=== PATIENT | female | born 1990 | race Asian ===

== ENCOUNTER 2016-07-12 07:49 | Day surgery (SDC) | payer BC, OTHER ==
[~2016-07-12 07:49] MED LIST: Bupivacaine 0.5%/EPINEPHrine 1:200,000 50 ML MDV ONE
[2016-07-12] MEDS ORDERED: Lactated Ringers 1,000 ML IV SCH (08:00)
[2016-07-12] MEDS ORDERED: fentaNYL 250 MCG/5 ML SDV ONE ×2 (09:25→10:28)
[2016-07-12] MEDS ORDERED: Propofol 200 MG/20 ML SDV ONE (09:26)
[2016-07-12] MEDS ORDERED: Neostigmine Methylsulfate 1 MG/ML 5 ML Syringe ONE (09:26)
[2016-07-12] MEDS ORDERED: Ondansetron 4 MG/2 ML SDV ONE (09:26)
[2016-07-12] MEDS ORDERED: Rocuronium 50 MG/5 ML Vial ONE (09:26)
[2016-07-12] MEDS ORDERED: Dexamethasone 4 MG/ML SDV ONE (09:26)
[2016-07-12] MEDS ORDERED: Fluorescein 5 ML Vial ONE (09:47)
[2016-07-12] MEDS ORDERED: Isosulfan Blue 5 ML SDV ONE (09:47)
[2016-07-12] MEDS ORDERED: Acetaminophen/HYDROcodone 325-5 MG Tab PO PRN (11:49)
[2016-07-12 13:13] VITALS: BP 104/61
== END 2016-07-12 13:00 | disposition home or self-care (01) ==
LOC: JP.SDS 07:49
PROVIDERS: ATTEND Obstetrics & Gynecology
DX: E28.2 Polycystic ovarian syndrome (principal); R10.2 Pelvic and perineal pain; N97.9 Female infertility, unspecified; N73.6 Female pelvic peritoneal adhesions (postinfective); N80.9 Endometriosis, unspecified
CPT/HCPCS: 36415; 49320; 58350; 81025; 86850; 86900; 86901; A9270; J1100; J2405; J2704; J3010; J7120; Q9968

== ENCOUNTER 2017-07-17 11:37 | Inpatient (IN) | payer BC ==
[2017-07-17] MEDS ORDERED: fentaNYL 100 MCG/2 ML SDV IVPUSH PRN (13:22)
[2017-07-17] MEDS ORDERED: Acetaminophen 325 MG Tab PO PRN (13:22)
[2017-07-17] MEDS ORDERED: Sodium Chloride 0.9% 10 ML Syringe FLUSH PRN (13:22)
[2017-07-17] MEDS: Lactated Ringers 1,000 ML IV SCH ×4 (13:45→19:41)
[2017-07-17] MEDS ORDERED: ePHEDrine 50 MG/ML SDV ONE (13:48)
[2017-07-17] MEDS ORDERED: Ropivacaine 100 ML EPIDUR SCH (14:48)
[2017-07-17] MEDS ORDERED: Naloxone 0.4 MG/ML SDV IVPUSH PRN (14:48)
[2017-07-17] MEDS ORDERED: ePHEDrine 50 MG/ML SDV IV PRN (14:48)
--- NOTE | 2017-07-17 15:13 | ANES ---
DATE OF SERVICE: 07/17/2017 LABOR EPIDURAL NOTE INDICATIONS: Lolis is a 27-year-old female patient in with labor pains and is requesting a labor epidural at this time. At the bedside at 1:50 p.m., did a brief history and physical with the patient. The patient stated that she has had a normal , no abnormal bleeding issues. No significant health problems. Platelet count was good, was approximately 250. Risk and benefits were reviewed with the patient and her . The patient understands the risks related to the procedure and still wishes to proceed with the labor epidural today. DESCRIPTION OF PROCEDURE: The patient was then sat at the edge of the bed. Time-out was done, Betadine prep x3 to the lumbar region was done. Sterile drape was placed. 1% lidocaine skin wheal and deep was done. A 17-gauge Touhy needle was inserted at approximately the L4-L5 space. Loss of resistance was achieved at approximately 6 cm. Negative paresthesia, negative heme, and negative CSF were noted. Catheter was easily placed. A 17-gauge Tuohy needle was then withdrawn. Catheter was pulled back to 12 cm. A 3 mL test dose was then done. Catheter was secured at that 12 cm. The patient was laid supine with left uterine displacement. I then proceeded to give 12 mL of 0.2% ropivacaine via the epidural bolus that was given over approximately 10 minutes. After the bolus was done, I then started her on a 0.2% ropivacaine drip at 12 mL an hour. The patient was already feeling some numbness and tingling mostly down the right side, but a little on the left. We will continue to monitor the patient closely. Vital signs were stable throughout and post ropivacaine bolus. The patient appeared comfortable upon leaving. Faustino Pratt CRNA /[id number]
[2017-07-17] MEDS ORDERED: fentaNYL 100 MCG/2 ML SDV ONE (15:30)
--- NOTE | 2017-07-17 16:43 | PCM.LDHP ---
L&D History of Present Illness - General Date of Service: 07/17/17 Admit Problem/Dx: Patient Status Order with Admit Dx/Problem 07/17/17 13:22 Patient Status [ADT] Routine Admission Diagnosis/Problem Admission Diagnosis/Problem - Related Data Allergies/Adverse Reactions: Allergies Allergy/AdvReac Type Severity Reaction Status Date / Time No Known Allergies Allergy Verified 07/12/16 08:08 Home Medications: Home Meds metFORMIN [Glucophage XR] 1,000 mg PO DAILY 07/11/16 [History] Vit 90/Iron Fum/Folic [ Formula] 1 tab PO DAILY 07/12/16 [ History] valACYclovir [Valtrex] 1,000 mg PO DAILY 07/17/17 [History] Past Medical History Gastrointestinal History: Reports: GERD, Hiatal Hernia, Other (See Below) Other Gastrointestinal History: gastroparesis [employer]IL[employer] WORK[employer] History: Reports: Endometriosis, Polycystic Ovaries, Musculoskeletal History: Reports: Fracture, Other (See Below) Other Musculoskeletal History: finger and clavicle fracture Neurological History: Reports: Migraines - Past Surgical History HEENT Surgical History: Reports: Oral Surgery GI Surgical History: Reports: Appendectomy, Colonoscopy, EGD, Jaylen Fundoplication Female Surgical History: Reports: Other (See Below) Other Female Surgeries/Procedures: endometrial biopsy Social & Family History - Tobacco Use Smoking Status *Q: Never Smoker Second Hand Smoke Exposure: No - Caffeine Use Caffeine Use: Reports: None - Recreational Drug Use Recreational Drug Use: No H&P Review of Systems - Review of Systems: Review Of Systems: See Below General: Reports: No Symptoms HEENT: Reports: No Symptoms Pulmonary: Reports: No Symptoms Cardiovascular: Reports: No Symptoms Gastrointestinal: Reports: No Symptoms Genitourinary: Reports: No Symptoms Musculoskeletal: Reports: No Symptoms Skin: Reports: No Symptoms Psychiatric: Reports: No Symptoms Neurological: Reports: No Symptoms Hematologic/Lymphatic: Reports: No Symptoms Immunologic: Reports: No Symptoms L&D Exam - Exam Exam: See Below - Vital Signs Vital Signs: Last Vital Signs Temp 37.1 C 07/17/17 16:18 Pulse 94 07/17/17 16:18 Resp 18 07/17/17 16:18 BP 122/76 07/17/17 16:18 Pulse Ox 95 07/17/17 16:18 Weight: 82.554 kg - OB Specific Contraction Duration (sec): 50-60 Contraction Frequency (min): none Contraction Intensity: Mild to Moderate Movement: Active Heart Tones: Present Heart Rate (FHR) Variability: Moderate (6-25 bmp) Presentation: Vertex - Mariee Score Mariee Score Cervix Position: Midposition Mariee Score Consistency: Soft Mariee Score Effacement: >80% Mariee Score Dilation: > 5 cm Mariee Score 's Station: -1 ,0 Mariee Score Total: 11 - Exam General: Alert, Oriented HEENT: PERRLA, Conjunctiva Clear, EACs Clear, EOMI, Hearing Intact, Mucosa Moist & [place], Nares Patent, Normal Nasal Septum, Posterior Pharynx Clear, TMs Clear Neck: Supple, Trachea Midline Lungs: Clear to Auscultation, Normal Respiratory Effort Cardiovascular: Regular Rate, Regular Rhythm GI/Abdominal Exam: Normal Bowel Sounds, Soft, Non-Tender, No Organomegaly, No Distention, No Abnormal Bruit, No Mass, Pelvis Stable Rectal Exam: Normal Exam, Normal Rectal Tone Genitourinary: Normal external exam, Normal bimanual exam, Normal speculum exam Back Exam: Normal Inspection, Full Range of Motion Extremities: Normal Inspection, Normal Range of Motion, Non-Tender, No Pedal Edema, Normal Capillary Refill Skin: Warm, Dry, Intact Neurological: Cranial Nerves Intact, Reflexes Equal Bilateral Psychiatric: Alert, Normal Affect, Normal Mood - Patient Data Lab Results Last 24 hrs: Laboratory Results - last 24 hr 07/17/17 07/17/17 07/17/17 Range/Units 11:53 11:53 12:58 WBC (4.5-11.0) K/uL RBC (3.30-5.50) M/uL Hgb (12.0-15.0) g/dL Hct (36.0-48.0) % MCV (80-98) fL MCH (27-31) pg MCHC (32-36) % Plt Count (150-400) K/uL Neut % (Auto) (36-66) % Lymph % (Auto) (24-44) % [place] % (Auto) (2-6) % Eos % (Auto) (2-4) % Baso % (Auto) (0-1) % Urine Color Yellow Urine Appearance Cloudy Urine pH 6.0 (4.5-8.0) Ur Specific [place] 1.015 (1.008-1.030) Urine Protein Negative (NEGATIVE) mg/dL Urine Glucose (UA) Normal (NEGATIVE) mg/dL Urine Ketones Negative (NEGATIVE) mg/dL Urine Occult Blood Negative (NEGATIVE) Urine Nitrite Negative (NEGATIVE) Urine Bilirubin Negative (NEGATIVE) Urine Urobilinogen Normal (NORMAL) mg/dL Ur Leukocyte Esterase Small (NEGATIVE) Urine RBC Not seen (0-5) Urine WBC 5-10 H (0-5) Ur Epithelial Cells Few Amorphous Sediment Not seen Urine Bacteria Many Urine Mucus Not seen Membrane Rupture Negative (NEGATIVE) Urine Opiates Screen Negative (NEGATIVE) Ur Oxycodone Screen Negative (NEGATIVE) Urine Methadone Screen Negative (NEGATIVE) Ur Propoxyphene Screen Negative (NEGATIVE) Ur Barbiturates Screen Negative (NEGATIVE) Ur Tricyclics Screen Negative (NEGATIVE) Ur Phencyclidine Scrn Negative (NEGATIVE) Ur Amphetamine Screen Negative (NEGATIVE) U Methamphetamines Scrn Negative (NEGATIVE) Urine MDMA Screen Negative (NEGATIVE) U Benzodiazepines Scrn Negative (NEGATIVE) U Cocaine Metab Screen Negative (NEGATIVE) U Marijuana (THC) Screen Negative (NEGATIVE) 07/17/17 Range/Units 13:22 WBC 12.8 H (4.5-11.0) K/uL RBC 4.31 (3.30-5.50) M/uL Hgb 13.3 (12.0-15.0) g/dL Hct 40.1 (36.0-48.0) % MCV 93 (80-98) fL MCH 31 (27-31) pg MCHC 33 (32-36) % Plt Count 219 (150-400) K/uL Neut % (Auto) 75 H (36-66) % Lymph % (Auto) 19 L (24-44) % [place] % (Auto) 6 (2-6) % Eos % (Auto) 1 L (2-4) % Baso % (Auto) 0 (0-1) % Urine Color Urine Appearance Urine pH (4.5-8.0) Ur Specific [place] (1.008-1.030) Urine Protein (NEGATIVE) mg/dL Urine Glucose (UA) (NEGATIVE) mg/dL Urine Ketones (NEGATIVE) mg/dL Urine Occult Blood (NEGATIVE) Urine Nitrite (NEGATIVE) Urine Bilirubin (NEGATIVE) Urine Urobilinogen (NORMAL) mg/dL Ur Leukocyte Esterase (NEGATIVE) Urine RBC (0-5) Urine WBC (0-5) Ur Epithelial Cells Amorphous Sediment Urine Bacteria Urine Mucus Membrane Rupture (NEGATIVE) Urine Opiates Screen (NEGATIVE) Ur Oxycodone Screen (NEGATIVE) Urine Methadone Screen (NEGATIVE) Ur Propoxyphene Screen (NEGATIVE) Ur Barbiturates Screen (NEGATIVE) Ur Tricyclics Screen (NEGATIVE) Ur Phencyclidine Scrn (NEGATIVE) Ur Amphetamine Screen (NEGATIVE) U Methamphetamines Scrn (NEGATIVE) Urine MDMA Screen (NEGATIVE) U Benzodiazepines Scrn (NEGATIVE) U Cocaine Metab Screen (NEGATIVE) U Marijuana (THC) Screen (NEGATIVE) Result Diagrams: 07/17/17 13:22 - Problem List (1) SNOMED Code(s): 10805806 ICD Code: Z34.90 - ENCNTR FOR SUPRVSN OF NORMAL , UNSP, UNSP TRIMESTER Status: Acute Current Visit: Yes Qualifiers: Weeks of gestation: 39 weeks Qualified Code(s): Z3A.39 - 39 weeks gestation of Problem List Initiated/Reviewed/Updated: Yes Orders Last 24hrs: Active Orders 24 hr Category Date Time Status Patient Status [ADT] Routine ADT 07/17/17 13:22 Active Ambulate [RC] PER UNIT ROUTINE Care 07/17/17 13:22 Active Communication Order [RC] ASDIRECTED Care 07/17/17 13:22 Active May Shower [RC] ASDIRECTED Care 07/17/17 13:22 Active Notify Provider Vital Signs [RC] PRN Care 07/17/17 13:22 Active Notify Provider [RC] PRN Care 07/17/17 13:22 Active PCEA Epidural [RC] ASDIRECTED Care 07/17/17 13:29 Active Up ad Crystal [RC] ASDIRECTED Care 07/17/17 13:22 Active VTE/DVT Education [RC] Click to Edit Care 07/17/17 13:24 Active Vital Signs [RC] PER UNIT ROUTINE Care 07/17/17 13:22 Active DRUG SCREEN, URINE [URCHEM] Routine Lab 07/17/17 12:58 Ordered UA W/MICROSCOPIC [URIN] Routine Lab 07/17/17 11:53 Ordered Acetaminophen [Tylenol] Med 07/17/17 13:22 Active 650 mg PO Q4H PRN Lactated Ringers [Ringers, Lactated] 1,000 ml Med 07/17/17 13:30 Active IV ASDIRECTED Naloxone [Narcan] Med 07/17/17 14:48 Active 0.1 mg IVPUSH Q5M PRN Oxytocin/Normal Saline [Pitocin in NS 20 Units/1,000 ML Med 07/17/17 16:00 Active ] 20 unit in 1,000 ml IV TITRATE Ropivacaine [Naropin 0.2%] 100 ml Med 07/17/17 14:48 Active EPIDUR ASDIRECTED Sodium Chloride 0.9% [Saline Flush] Med 07/17/17 13:22 Active 10 ml FLUSH ASDIRECTED PRN ePHEDrine [ePHEDrine Sulfate] Med 07/17/17 14:48 Active 5 - 10 mg IV ASDIRECTED PRN fentaNYL [Sublimaze] Med 07/17/17 13:22 Active 100 mcg IVPUSH Q1H PRN DVT/VTE Prophylaxis Reflex [OM.PC] Routine Oth 07/17/17 13:22 Ordered Epidural Catheter Management [OM.PC] Routine Oth 07/17/17 13:28 Ordered Saline Lock Insert [OM.PC] Routine Oth 07/17/17 13:22 Ordered Resuscitation Status Routine Resus Stat 07/17/17 13:22 Ordered Medication Orders Acetaminophen (Tylenol) 650 mg PO Q4H PRN PRN Reason: Pain (Mild 1-3) and fever Ephedrine Sulfate (Ephedrine Sulfate) 5 - 10 mg IV ASDIRECTED PRN PRN Reason: Systolic BP less than 100 Fentanyl (Sublimaze) 100 mcg IVPUSH Q1H PRN PRN Reason: Pain (moderate 4-6) Lactated Ringer's (Ringers, Lactated) 1,000 mls @ 125 mls/hr IV ASDIRECTED VLADIMIR Last Admin: 07/17/17 14:23 Dose: 125 mls/hr Infusion: 07/17/17 14:23 Dose: 125 mls/hr Admin: 07/17/17 13:45 Dose: 125 mls/hr Ropivacaine (Naropin 0.2%) 100 mls @ 0 mls/hr EPIDUR ASDIRECTED VLADIMIR; Protocol Oxytocin/Sodium Chloride (Pitocin In Ns 20 Units/1,000 Ml) 20 unit in 1,000 mls @ 6 mls/hr IV TITRATE VLADIMIR; Protocol Naloxone HCl (Narcan) 0.1 mg IVPUSH Q5M PRN PRN Reason: IF RESP RATE LESS THAN 6 Sodium Chloride (Saline Flush) 10 ml FLUSH ASDIRECTED PRN PRN Reason: Keep Vein Open Assessment/Plan Comment:: 07/17/2017 27 yo here at 39 1/7 weeks gestation believed she had SROM at home SVE-5/80/0 Bishops score-11 Decision to augment labor due to dilation and previous history of problems with epidural placement Plan- Monitor for active labor Place epidural for pain management then will AROM for augmentation Plan for vaginal delivery
--- NOTE | 2017-07-17 16:45 | PCM.PNLD ---
Labor Progress Note - VS & Meds Vital Signs: Last Vital Signs Temp 37.1 C 07/17/17 16:18 Pulse 94 07/17/17 16:18 Resp 18 07/17/17 16:18 BP 122/76 07/17/17 16:18 Pulse Ox 95 07/17/17 16:18 Active Medications: Current Medications Acetaminophen (Tylenol) 650 mg PO Q4H PRN PRN Reason: Pain (Mild 1-3) and fever Ephedrine Sulfate (Ephedrine Sulfate) 5 - 10 mg IV ASDIRECTED PRN PRN Reason: Systolic BP less than 100 Fentanyl (Sublimaze) 100 mcg IVPUSH Q1H PRN PRN Reason: Pain (moderate 4-6) Lactated Ringer's (Ringers, Lactated) 1,000 mls @ 125 mls/hr IV ASDIRECTED VLADIMIR Last Admin: 07/17/17 14:23 Dose: 125 mls/hr Ropivacaine (Naropin 0.2%) 100 mls @ 0 mls/hr EPIDUR ASDIRECTED VLADIMIR; Protocol Oxytocin/Sodium Chloride (Pitocin In Ns 20 Units/1,000 Ml) 20 unit in 1,000 mls @ 6 mls/hr IV TITRATE VLADIMIR; Protocol Naloxone HCl (Narcan) 0.1 mg IVPUSH Q5M PRN PRN Reason: IF RESP RATE LESS THAN 6 Sodium Chloride (Saline Flush) 10 ml FLUSH ASDIRECTED PRN PRN Reason: Keep Vein Open Discontinued Medications Ephedrine Sulfate (Ephedrine Sulfate) Confirm Administered Dose 50 mg .ROUTE .STK-MED ONE Stop: 07/17/17 13:49 Last Admin: 07/17/17 16:18 Dose: Not Given Fentanyl (Sublimaze) Confirm Administered Dose 100 mcg .ROUTE .STK-MED ONE Stop: 07/17/17 15:31 Oxytocin/Sodium Chloride (Pitocin In Ns 20 Units/1,000 Ml) 20 unit in 1,000 mls @ 2,997 mls/hr IV ONETIME ONE; Protocol Stop: 07/17/17 13:50 Last Admin: 07/17/17 16:17 Dose: 2 munits/min, 6 mls/hr - Uterine Contractions Uterine Monitoring Mode: External [place] Contraction Frequency (min): none Contraction Duration (sec): 50-60 Contraction Intensity: Mild to Moderate Uterine Resting Tone: Soft - Monitoring Monitor Mode: External Ultrasound Heart Rate (FHR) Variability: Moderate (6-25 bmp) - Vaginal Exam Dilation (cm): 5 Effacement (Percent): 90 Station: 0 Cervical Position: Anterior Sterile Vaginal Exam Performed By: Elsa Pleitez - Labor Progress (Free Text) Labor Progress: 07/17/2017 Epidural not working-waiting to have it replaced so can AROM per patient request and history of epidural not working with past delivery FHTs category one Contractions irregular Plan- Continue to monitor active labor Continue to monitor FHTs Epidural replacement then will plan AROM for augmentation
[2017-07-17] MEDS ORDERED: Ropivacaine HCl/PF 200 ML ONE (18:11)
--- NOTE | 2017-07-17 18:32 | PCM.PNLD ---
Labor Progress Note - VS & Meds Vital Signs: Last Vital Signs Temp 37.1 C 07/17/17 16:18 Pulse 94 07/17/17 16:18 Resp 18 07/17/17 16:18 BP 122/76 07/17/17 16:18 Pulse Ox 95 07/17/17 16:18 Active Medications: Current Medications Acetaminophen (Tylenol) 650 mg PO Q4H PRN PRN Reason: Pain (Mild 1-3) and fever Ephedrine Sulfate (Ephedrine Sulfate) 5 - 10 mg IV ASDIRECTED PRN PRN Reason: Systolic BP less than 100 Fentanyl (Sublimaze) 100 mcg IVPUSH Q1H PRN PRN Reason: Pain (moderate 4-6) Lactated Ringer's (Ringers, Lactated) 1,000 mls @ 125 mls/hr IV ASDIRECTED VLADIMIR Last Admin: 07/17/17 16:42 Dose: 125 mls/hr Ropivacaine (Naropin 0.2%) 100 mls @ 0 mls/hr EPIDUR ASDIRECTED VLADIMIR; Protocol Oxytocin/Sodium Chloride (Pitocin In Ns 20 Units/1,000 Ml) 20 unit in 1,000 mls @ 6 mls/hr IV TITRATE VLADIMIR; Protocol Naloxone HCl (Narcan) 0.1 mg IVPUSH Q5M PRN PRN Reason: IF RESP RATE LESS THAN 6 Sodium Chloride (Saline Flush) 10 ml FLUSH ASDIRECTED PRN PRN Reason: Keep Vein Open Discontinued Medications Ephedrine Sulfate (Ephedrine Sulfate) Confirm Administered Dose 50 mg .ROUTE .STK-MED ONE Stop: 07/17/17 13:49 Last Admin: 07/17/17 16:18 Dose: Not Given Fentanyl (Sublimaze) Confirm Administered Dose 100 mcg .ROUTE .STK-MED ONE Stop: 07/17/17 15:31 Oxytocin/Sodium Chloride (Pitocin In Ns 20 Units/1,000 Ml) 20 unit in 1,000 mls @ 2,997 mls/hr IV ONETIME ONE; Protocol Stop: 07/17/17 13:50 Last Titration: 07/17/17 17:09 Dose: 6 munits/min, 18 mls/hr Ropivacaine (Naropin 0.2%) Confirm Administered Dose 200 mls @ as directed .ROUTE .STK-MED ONE Stop: 07/17/17 18:12 - Uterine Contractions Uterine Monitoring Mode: External [place] Contraction Frequency (min): 2 Contraction Duration (sec): 60 Contraction Intensity: Moderate to Strong Uterine Resting Tone: Soft - Monitoring Monitor Mode: External Ultrasound Heart Rate (FHR) Variability: Moderate (6-25 bmp) - Vaginal Exam Dilation (cm): 7 Effacement (Percent): 90 Station: 0 Cervical Position: Anterior Sterile Vaginal Exam Performed By: Elsa Pleitez - Labor Progress (Free Text) Labor Progress: 07/17/2017 Patient now comfortable with epidural SVE-7/90/0 FHTs category one Contractions more regular Plan- Continue to monitor for active labor Continue to monitor FHTs Continue epidural for pain management Continue Pitocin per protocol for augmentation Anticipate and plan for a vaginal delivery
--- NOTE | 2017-07-17 19:45 | PCM.PNLD ---
Labor Progress Note - VS & Meds Vital Signs: Last Vital Signs Temp 37.1 C 07/17/17 16:18 Pulse 94 07/17/17 16:18 Resp 18 07/17/17 16:18 BP 122/76 07/17/17 16:18 Pulse Ox 95 07/17/17 16:18 Active Medications: Current Medications Acetaminophen (Tylenol) 650 mg PO Q4H PRN PRN Reason: Pain (Mild 1-3) and fever Ephedrine Sulfate (Ephedrine Sulfate) 5 - 10 mg IV ASDIRECTED PRN PRN Reason: Systolic BP less than 100 Fentanyl (Sublimaze) 100 mcg IVPUSH Q1H PRN PRN Reason: Pain (moderate 4-6) Lactated Ringer's (Ringers, Lactated) 1,000 mls @ 125 mls/hr IV ASDIRECTED VLADIMIR Last Admin: 07/17/17 19:41 Dose: 125 mls/hr Ropivacaine (Naropin 0.2%) 100 mls @ 0 mls/hr EPIDUR ASDIRECTED VLADIMIR; Protocol Oxytocin/Sodium Chloride (Pitocin In Ns 20 Units/1,000 Ml) 20 unit in 1,000 mls @ 6 mls/hr IV TITRATE VLADIMIR; Protocol Naloxone HCl (Narcan) 0.1 mg IVPUSH Q5M PRN PRN Reason: IF RESP RATE LESS THAN 6 Sodium Chloride (Saline Flush) 10 ml FLUSH ASDIRECTED PRN PRN Reason: Keep Vein Open Discontinued Medications Ephedrine Sulfate (Ephedrine Sulfate) Confirm Administered Dose 50 mg .ROUTE .STK-MED ONE Stop: 07/17/17 13:49 Last Admin: 07/17/17 16:18 Dose: Not Given Fentanyl (Sublimaze) Confirm Administered Dose 100 mcg .ROUTE .STK-MED ONE Stop: 07/17/17 15:31 Oxytocin/Sodium Chloride (Pitocin In Ns 20 Units/1,000 Ml) 20 unit in 1,000 mls @ 2,997 mls/hr IV ONETIME ONE; Protocol Stop: 07/17/17 13:50 Last Titration: 07/17/17 17:09 Dose: 6 munits/min, 18 mls/hr Ropivacaine (Naropin 0.2%) Confirm Administered Dose 200 mls @ as directed .ROUTE .STK-MED ONE Stop: 07/17/17 18:12 - Uterine Contractions Uterine Monitoring Mode: External [place] Contraction Frequency (min): 2-3.5 Contraction Duration (sec): 60 Contraction Intensity: Moderate to Strong Uterine Resting Tone: Soft - Monitoring Monitor Mode: External Ultrasound Heart Rate (FHR) Variability: Moderate (6-25 bmp) - Vaginal Exam Dilation (cm): RIM Effacement (Percent): 100 Station: 1 Cervical Position: Anterior Sterile Vaginal Exam Performed By: Elsa Pleitez - Labor Progress (Free Text) Labor Progress: 07/17/2017 SVE-Rim/100/+1 FHTs category one early decelerations Contractions regular Patient comfortable with epidural Plan- Continue to monitor labor Continue to monitor FHTs Continue epidural for pain control Continue Pitocin per protocol Anticipate and plan for a vaginal delivery
[2017-07-17] MEDS ORDERED: ceFAZolin 2 GM in Premix Bag 1 BAG IV ONE ×2 (20:15→22:30)
[2017-07-17] MEDS ORDERED: ceFAZolin 1 GM Vial ONE (20:36)
[2017-07-17] MEDS ORDERED: Sodium Chloride 0.9% 100 ML ONE (20:37)
[2017-07-17] MEDS ORDERED: Carboprost Tromethamine 250 MCG/1 ML Amp ONE (20:41)
[2017-07-17] MEDS ORDERED: Misoprostol 200 MCG Tab ONE (20:41)
[2017-07-17] MEDS ORDERED: Methylergonovine 0.2 MG/1 ML Amp ONE (20:41)
[2017-07-17] MEDS ORDERED: Acetaminophen/HYDROcodone 325-5 MG Tab PO PRN (21:05)
[2017-07-17] MEDS ORDERED: Docusate Sodium 100 MG Cap PO PRN (21:05)
[2017-07-17] MEDS ORDERED: Ibuprofen 600 MG Tab PO PRN (21:05)
[2017-07-17] MEDS ORDERED: Witch Hazel Medicated Pads 100/Jar TOP PRN (21:05)
[2017-07-17] MEDS ORDERED: Lanolin 100% Cream 40 GM Tube TOP PRN (21:05)
[2017-07-17] MEDS ORDERED: Acetaminophen 325 MG Tab, 50 Tab Bulk Bottle PO PRN (21:11)
[2017-07-17] MEDS ORDERED: Ibuprofen 200 MG Tab, 24 Tab Bulk Bottle PO PRN (21:11)
--- NOTE | 2017-07-17 21:19 | PCM.DEL ---
L & D Note - General Info Date of Service: 07/17/17 Mother's Due Date: 07/23/17 - Delivery Note Labor: Augmented by ARM Delivery Outcome: Livebirth Delivery Method: Spontaneous Vaginal Delivery-Single Delivery Mode: Spontaneous Presentation: Right Occiput Anterior (MALIK) Nuchal Cord: None Anesthesia Type: Epidural Amniotic Fluid Description: Clear Episiotomy Type: None Laceration: None Placenta: Intact, Manual Removal, Retained Cord: 3 Vessels Estimated Blood Loss: 300 Resuscitation Needed: No [place]: Bulb Syringe, Stimulated, Warmed, [place] Used Score 1 min: 8 Score 5 min: 8 Second Stage Interventions: Reports: Encouragement Given, Pushing Effectively Delivery Comments (Free Text/Narrative):: 07/17/2017 27 yo at 39 1/7 gestational weeks delivered normal spontaneous vaginal delivery viable male infant at 2011 on 07/17/2017 in MALIK position over an intact perineum. APGARS-8/8, weight 7lbs, 14oz, length-20.1 inches, bulb suctioned, stimulated, warmed and dried and began to cry vigorously. Placenta was manually removed, three vessel cord, no lacerations noted to perineum, vagina, labia, cervix, or rectum. EBL-300ml. and mother both stable in labor and delivery room. - General Info Date of Service: 07/17/17 Admission Dx/Problem (Free Text): Patient Status Order with Admit Dx/Problem 07/17/17 13:22 Patient Status [ADT] Routine Admission Diagnosis/Problem Admission Diagnosis/Problem Functional Status: Reports: Pain Controlled - Review of Systems General: Reports: No Symptoms HEENT: Reports: No Symptoms Pulmonary: Reports: No Symptoms Cardiovascular: Reports: No Symptoms Gastrointestinal: Reports: No Symptoms Genitourinary: Reports: No Symptoms Musculoskeletal: Reports: No Symptoms Skin: Reports: No Symptoms Neurological: Reports: No Symptoms Psychiatric: Reports: No Symptoms - Patient Data Vitals - Most Recent: Last Vital Signs Temp 37.1 C 07/17/17 16:18 Pulse 94 07/17/17 16:18 Resp 18 07/17/17 16:18 BP 122/76 07/17/17 16:18 Pulse Ox 95 07/17/17 16:18 Weight - Most Recent: 82.554 kg Lab Results Last 24 Hours: Laboratory Results - last 24 hr 07/17/17 07/17/17 07/17/17 Range/Units 11:53 11:53 12:58 WBC (4.5-11.0) K/uL RBC (3.30-5.50) M/uL Hgb (12.0-15.0) g/dL Hct (36.0-48.0) % MCV (80-98) fL MCH (27-31) pg MCHC (32-36) % Plt Count (150-400) K/uL Neut % (Auto) (36-66) % Lymph % (Auto) (24-44) % [place] % (Auto) (2-6) % Eos % (Auto) (2-4) % Baso % (Auto) (0-1) % Urine Color Yellow Urine Appearance Cloudy Urine pH 6.0 (4.5-8.0) Ur Specific [place] 1.015 (1.008-1.030) Urine Protein Negative (NEGATIVE) mg/dL Urine Glucose (UA) Normal (NEGATIVE) mg/dL Urine Ketones Negative (NEGATIVE) mg/dL Urine Occult Blood Negative (NEGATIVE) Urine Nitrite Negative (NEGATIVE) Urine Bilirubin Negative (NEGATIVE) Urine Urobilinogen Normal (NORMAL) mg/dL Ur Leukocyte Esterase Small (NEGATIVE) Urine RBC Not seen (0-5) Urine WBC 5-10 H (0-5) Ur Epithelial Cells Few Amorphous Sediment Not seen Urine Bacteria Many Urine Mucus Not seen Membrane Rupture Negative (NEGATIVE) Urine Opiates Screen Negative (NEGATIVE) Ur Oxycodone Screen Negative (NEGATIVE) Urine Methadone Screen Negative (NEGATIVE) Ur Propoxyphene Screen Negative (NEGATIVE) Ur Barbiturates Screen Negative (NEGATIVE) Ur Tricyclics Screen Negative (NEGATIVE) Ur Phencyclidine Scrn Negative (NEGATIVE) Ur Amphetamine Screen Negative (NEGATIVE) U Methamphetamines Scrn Negative (NEGATIVE) Urine MDMA Screen Negative (NEGATIVE) U Benzodiazepines Scrn Negative (NEGATIVE) U Cocaine Metab Screen Negative (NEGATIVE) U Marijuana (THC) Screen Negative (NEGATIVE) 07/17/17 Range/Units 13:22 WBC 12.8 H (4.5-11.0) K/uL RBC 4.31 (3.30-5.50) M/uL Hgb 13.3 (12.0-15.0) g/dL Hct 40.1 (36.0-48.0) % MCV 93 (80-98) fL MCH 31 (27-31) pg MCHC 33 (32-36) % Plt Count 219 (150-400) K/uL Neut % (Auto) 75 H (36-66) % Lymph % (Auto) 19 L (24-44) % [place] % (Auto) 6 (2-6) % Eos % (Auto) 1 L (2-4) % Baso % (Auto) 0 (0-1) % Urine Color Urine Appearance Urine pH (4.5-8.0) Ur Specific [place] (1.008-1.030) Urine Protein (NEGATIVE) mg/dL Urine Glucose (UA) (NEGATIVE) mg/dL Urine Ketones (NEGATIVE) mg/dL Urine Occult Blood (NEGATIVE) Urine Nitrite (NEGATIVE) Urine Bilirubin (NEGATIVE) Urine Urobilinogen (NORMAL) mg/dL Ur Leukocyte Esterase (NEGATIVE) Urine RBC (0-5) Urine WBC (0-5) Ur Epithelial Cells Amorphous Sediment Urine Bacteria Urine Mucus Membrane Rupture (NEGATIVE) Urine Opiates Screen (NEGATIVE) Ur Oxycodone Screen (NEGATIVE) Urine Methadone Screen (NEGATIVE) Ur Propoxyphene Screen (NEGATIVE) Ur Barbiturates Screen (NEGATIVE) Ur Tricyclics Screen (NEGATIVE) Ur Phencyclidine Scrn (NEGATIVE) Ur Amphetamine Screen (NEGATIVE) U Methamphetamines Scrn (NEGATIVE) Urine MDMA Screen (NEGATIVE) U Benzodiazepines Scrn (NEGATIVE) U Cocaine Metab Screen (NEGATIVE) U Marijuana (THC) Screen (NEGATIVE) Med Orders - Current: Current Medications Acetaminophen (Tylenol) 650 mg PO Q4H PRN PRN Reason: Pain (Mild 1-3) and fever Acetaminophen (Tylenol Bulk Bottle) 325 mg PO Q4H PRN PRN Reason: Pain Hydrocodone Bitart/Acetaminophen (Line [place] 325-5 Mg) 1 tab PO Q4H PRN PRN Reason: Pain (moderate 4-6) Docusate Sodium (Colace) 100 mg PO BID PRN PRN Reason: Constipation Emollient Ointment (Lansinoh Hpa) 1 gm TOP ASDIRECTED PRN PRN Reason: Sore Nipples Ephedrine Sulfate (Ephedrine Sulfate) 5 - 10 mg IV ASDIRECTED PRN PRN Reason: Systolic BP less than 100 Fentanyl (Sublimaze) 100 mcg IVPUSH Q1H PRN PRN Reason: Pain (moderate 4-6) Lactated Ringer's (Ringers, Lactated) 1,000 mls @ 125 mls/hr IV ASDIRECTED VLADIMIR Last Admin: 07/17/17 19:41 Dose: 125 mls/hr Ropivacaine (Naropin 0.2%) 100 mls @ 0 mls/hr EPIDUR ASDIRECTED VLADIMIR; Protocol Oxytocin/Sodium Chloride (Pitocin In Ns 20 Units/1,000 Ml) 20 unit in 1,000 mls @ 6 mls/hr IV TITRATE VLADIMIR; Protocol Ibuprofen (Motrin) 600 mg PO Q6H PRN PRN Reason: mild pain or fever Ibuprofen (Motrin Bulk Bottle) 600 mg PO Q6H PRN PRN Reason: Pain Naloxone HCl (Narcan) 0.1 mg IVPUSH Q5M PRN PRN Reason: IF RESP RATE LESS THAN 6 Sodium Chloride (Saline Flush) 10 ml FLUSH ASDIRECTED PRN PRN Reason: Keep Vein Open Witch Damaris (Tucks) 1 pad TOP ASDIRECTED PRN PRN Reason: Hemorrhoids Discontinued Medications Carboprost Tromethamine (Hemabate Ds) Confirm Administered Dose 250 mcg .ROUTE .STK-MED ONE Stop: 07/17/17 20:42 Cefazolin Sodium (Ancef) Confirm Administered Dose 2 gm .ROUTE .STK-MED ONE Stop: 07/17/17 20:37 Ephedrine Sulfate (Ephedrine Sulfate) Confirm Administered Dose 50 mg .ROUTE .STK-MED ONE Stop: 07/17/17 13:49 Last Admin: 07/17/17 16:18 Dose: Not Given Fentanyl (Sublimaze) Confirm Administered Dose 100 mcg .ROUTE .STK-MED ONE Stop: 07/17/17 15:31 Oxytocin/Sodium Chloride (Pitocin In Ns 20 Units/1,000 Ml) 20 unit in 1,000 mls @ 2,997 mls/hr IV ONETIME ONE; Protocol Stop: 07/17/17 13:50 Last Titration: 07/17/17 17:09 Dose: 6 munits/min, 18 mls/hr Ropivacaine (Naropin 0.2%) Confirm Administered Dose 200 mls @ as directed .ROUTE .STK-MED ONE Stop: 07/17/17 18:12 Sodium Chloride (Normal Saline) Confirm Administered Dose 100 mls @ as directed .ROUTE .STK-MED ONE Stop: 07/17/17 20:38 Methylergonovine Maleate (Methergine) Confirm Administered Dose 0.2 mg .ROUTE .STK-MED ONE Stop: 07/17/17 20:42 Misoprostol (Cytotec) Confirm Administered Dose 800 mcg .ROUTE .STK-MED ONE Stop: 07/17/17 20:42 - Exam General: Alert, Oriented HEENT: Pupils Equal, Pupils Reactive, EOMI, Mucous Membr. Moist/[place] Neck: Supple Lungs: Clear to Auscultation, Normal Respiratory Effort Cardiovascular: Regular Rate, Regular Rhythm GI/Abdominal Exam: Normal Bowel Sounds, Soft, Non-Tender, No Organomegaly, No Distention, No Abnormal Bruit, No Mass, Pelvis Stable (Female) Exam: Normal External Exam, Normal Speculum Exam, Normal Bimanual Exam Back Exam: Normal Inspection, Full Range of Motion Extremities: Normal Inspection, Normal Range of Motion, Non-Tender, No Pedal Edema, Normal Capillary Refill Skin: Warm, Dry, Intact Wound/Incisions: Healing Well Neurological: No New Focal Deficit Psy/Mental Status: Alert, Normal Affect, Normal Mood - Problem List & Annotations (1) SNOMED Code(s): 77024178 Code(s): Z34.90 - ENCNTR FOR SUPRVSN OF NORMAL , UNSP, UNSP TRIMESTER Status: Acute Current Visit: Yes Qualifiers: Weeks of gestation: 39 weeks Qualified Code(s): Z3A.39 - 39 weeks gestation of (2) Normal vaginal delivery SNOMED Code(s): 28374366 Code(s): O80 - ENCOUNTER FOR FULL-TERM UNCOMPLICATED DELIVERY Status: Acute Current Visit: Yes (3) Retained placenta or membranes SNOMED Code(s): 636500127 Code(s): O73.1 - RETAINED PORTIONS OF PLACENTA AND MEMBRANES, W/O HEMORRHAGE Status: Acute Priority: High Current Visit: Yes - Problem List Review Problem List Initiated/Reviewed/Updated: Yes - My Orders Last 24 Hours: My Active Orders 07/17/17 11:53 UA W/MICROSCOPIC [URIN] Routine 07/17/17 12:58 DRUG SCREEN, URINE [URCHEM] Routine 07/17/17 13:22 Patient Status [ADT] Routine Ambulate [RC] PER UNIT ROUTINE Communication Order [RC] ASDIRECTED May Shower [RC] ASDIRECTED Notify Provider Vital Signs [RC] PRN Notify Provider [RC] PRN Up ad Crystal [RC] ASDIRECTED Vital Signs [RC] PER UNIT ROUTINE Acetaminophen [Tylenol] 650 mg PO Q4H PRN Sodium Chloride 0.9% [Saline Flush] 10 ml FLUSH ASDIRECTED PRN fentaNYL [Sublimaze] 100 mcg IVPUSH Q1H PRN DVT/VTE Prophylaxis Reflex [OM.PC] Routine Saline Lock Insert [OM.PC] Routine Resuscitation Status Routine 07/17/17 13:24 VTE/DVT Education [RC] Click to Edit 07/17/17 13:28 Epidural Catheter Management [OM.PC] Routine 07/17/17 13:29 PCEA Epidural [RC] ASDIRECTED 07/17/17 13:30 Lactated Ringers [Ringers, Lactated] 1,000 ml IV ASDIRECTED 07/17/17 16:00 Oxytocin/Normal Saline [Pitocin in NS 20 Units/1,000 ML] 20 unit in 1,000 ml IV TITRATE 07/17/17 21:05 Acetaminophen/HYDROcodone [Line [place] 325-5 MG] 1 tab PO Q4H PRN Docusate Sodium [Colace] 100 mg PO BID PRN Ibuprofen [Motrin] 600 mg PO Q6H PRN Lanolin [Lansinoh HPA] 1 gm TOP ASDIRECTED PRN Witch [place] [Tucks] 1 pad TOP ASDIRECTED PRN Assess Lochia [WOMSER] Per Unit Routine Assess Uterine Involution [WOMSER] Per Unit Routine 07/17/17 21:06 Patient Status [ADT] Routine Vital Signs [RC] PFP 07/17/17 21:11 Acetaminophen [Tylenol Bulk Bottle] 325 mg PO Q4H PRN Ibuprofen [Motrin Bulk Bottle] 600 mg PO Q6H PRN 07/18/17 06:00 CBC WITH AUTO DIFF [HEME] Routine - Plan Plan:: 07/17/2017 27 yo here at 39 1/7 weeks gestation believed she had SROM at home SVE-5/80/0 Bishops score-11 Decision to augment labor due to dilation and previous history of problems with epidural placement Plan- Monitor for active labor Place epidural for pain management then will AROM for augmentation Plan for vaginal delivery
--- NOTE | 2017-07-18 08:27 | PCM.PNPP ---
- General Info Date of Service: 07/18/17 Functional Status: Reports: Pain Controlled - Review of Systems General: Reports: No Symptoms HEENT: Reports: No Symptoms Pulmonary: Reports: No Symptoms Cardiovascular: Reports: No Symptoms Gastrointestinal: Reports: No Symptoms Genitourinary: Reports: No Symptoms Musculoskeletal: Reports: No Symptoms Skin: Reports: No Symptoms Neurological: Reports: No Symptoms Psychiatric: Reports: No Symptoms - General Info Date of Service: 07/18/17 - Patient Data Vital Signs - Most Recent: Last Vital Signs Temp 36.0 C 07/18/17 07:31 Pulse 91 07/18/17 07:31 Resp 16 07/18/17 07:31 BP 106/71 07/18/17 07:31 Pulse Ox 96 07/18/17 07:31 Weight - Most Recent: 82.554 kg I&O - Last 24 Hours: Intake & Output 07/17/17 07/18/17 07/18/17 22:59 06:59 14:59 Intake Total 1100 3041 Output Total 1000 Balance 100 3041 Lab Results - Last 24 Hours: Laboratory Results - last 24 hr 07/17/17 07/17/17 07/17/17 Range/Units 11:53 11:53 12:58 WBC (4.5-11.0) K/uL RBC (3.30-5.50) M/uL Hgb (12.0-15.0) g/dL Hct (36.0-48.0) % MCV (80-98) fL MCH (27-31) pg MCHC (32-36) % Plt Count (150-400) K/uL Neut % (Auto) (36-66) % Lymph % (Auto) (24-44) % [place] % (Auto) (2-6) % Eos % (Auto) (2-4) % Baso % (Auto) (0-1) % Urine Color Yellow Urine Appearance Cloudy Urine pH 6.0 (4.5-8.0) Ur Specific [place] 1.015 (1.008-1.030) Urine Protein Negative (NEGATIVE) mg/dL Urine Glucose (UA) Normal (NEGATIVE) mg/dL Urine Ketones Negative (NEGATIVE) mg/dL Urine Occult Blood Negative (NEGATIVE) Urine Nitrite Negative (NEGATIVE) Urine Bilirubin Negative (NEGATIVE) Urine Urobilinogen Normal (NORMAL) mg/dL Ur Leukocyte Esterase Small (NEGATIVE) Urine RBC Not seen (0-5) Urine WBC 5-10 H (0-5) Ur Epithelial Cells Few Amorphous Sediment Not seen Urine Bacteria Many Urine Mucus Not seen Membrane Rupture Negative (NEGATIVE) Urine Opiates Screen Negative (NEGATIVE) Ur Oxycodone Screen Negative (NEGATIVE) Urine Methadone Screen Negative (NEGATIVE) Ur Propoxyphene Screen Negative (NEGATIVE) Ur Barbiturates Screen Negative (NEGATIVE) Ur Tricyclics Screen Negative (NEGATIVE) Ur Phencyclidine Scrn Negative (NEGATIVE) Ur Amphetamine Screen Negative (NEGATIVE) U Methamphetamines Scrn Negative (NEGATIVE) Urine MDMA Screen Negative (NEGATIVE) U Benzodiazepines Scrn Negative (NEGATIVE) U Cocaine Metab Screen Negative (NEGATIVE) U Marijuana (THC) Screen Negative (NEGATIVE) 07/17/17 07/18/17 Range/Units 13:22 06:00 WBC 12.8 H 18.1 H (4.5-11.0) K/uL RBC 4.31 3.85 (3.30-5.50) M/uL Hgb 13.3 11.9 L (12.0-15.0) g/dL Hct 40.1 36.2 (36.0-48.0) % MCV 93 94 (80-98) fL MCH 31 31 (27-31) pg MCHC 33 33 (32-36) % Plt Count 219 202 (150-400) K/uL Neut % (Auto) 75 H 76 H (36-66) % Lymph % (Auto) 19 L 18 L (24-44) % [place] % (Auto) 6 6 (2-6) % Eos % (Auto) 1 L 1 L (2-4) % Baso % (Auto) 0 0 (0-1) % Urine Color Urine Appearance Urine pH (4.5-8.0) Ur Specific [place] (1.008-1.030) Urine Protein (NEGATIVE) mg/dL Urine Glucose (UA) (NEGATIVE) mg/dL Urine Ketones (NEGATIVE) mg/dL Urine Occult Blood (NEGATIVE) Urine Nitrite (NEGATIVE) Urine Bilirubin (NEGATIVE) Urine Urobilinogen (NORMAL) mg/dL Ur Leukocyte Esterase (NEGATIVE) Urine RBC (0-5) Urine WBC (0-5) Ur Epithelial Cells Amorphous Sediment Urine Bacteria Urine Mucus Membrane Rupture (NEGATIVE) Urine Opiates Screen (NEGATIVE) Ur Oxycodone Screen (NEGATIVE) Urine Methadone Screen (NEGATIVE) Ur Propoxyphene Screen (NEGATIVE) Ur Barbiturates Screen (NEGATIVE) Ur Tricyclics Screen (NEGATIVE) Ur Phencyclidine Scrn (NEGATIVE) Ur Amphetamine Screen (NEGATIVE) U Methamphetamines Scrn (NEGATIVE) Urine MDMA Screen (NEGATIVE) U Benzodiazepines Scrn (NEGATIVE) U Cocaine Metab Screen (NEGATIVE) U Marijuana (THC) Screen (NEGATIVE) Med Orders - Current: Current Medications Acetaminophen (Tylenol) 650 mg PO Q4H PRN PRN Reason: Pain (Mild 1-3) and fever Acetaminophen (Tylenol Bulk Bottle) 325 mg PO Q4H PRN PRN Reason: Pain Last Admin: 07/17/17 22:38 Dose: 1 bottle Hydrocodone Bitart/Acetaminophen ([place] 325-5 Mg) 1 tab PO Q4H PRN PRN Reason: Pain (moderate 4-6) Docusate Sodium (Colace) 100 mg PO BID PRN PRN Reason: Constipation Emollient Ointment (Lansinoh Hpa) 1 gm TOP ASDIRECTED PRN PRN Reason: Sore Nipples Ephedrine Sulfate (Ephedrine Sulfate) 5 - 10 mg IV ASDIRECTED PRN PRN Reason: Systolic BP less than 100 Fentanyl (Sublimaze) 100 mcg IVPUSH Q1H PRN PRN Reason: Pain (moderate 4-6) Lactated Ringer's (Ringers, Lactated) 1,000 mls @ 125 mls/hr IV ASDIRECTED VLADIMIR Last Admin: 07/17/17 19:41 Dose: 125 mls/hr Ropivacaine (Naropin 0.2%) 100 mls @ 0 mls/hr EPIDUR ASDIRECTED VLADIMIR; Protocol Oxytocin/Sodium Chloride (Pitocin In Ns 20 Units/1,000 Ml) 20 unit in 1,000 mls @ 6 mls/hr IV TITRATE VLADIMIR; Protocol Ibuprofen (Motrin) 600 mg PO Q6H PRN PRN Reason: mild pain or fever Ibuprofen (Motrin Bulk Bottle) 600 mg PO Q6H PRN PRN Reason: Pain Last Admin: 07/17/17 22:38 Dose: 1 bottle Naloxone HCl (Narcan) 0.1 mg IVPUSH Q5M PRN PRN Reason: IF RESP RATE LESS THAN 6 Sodium Chloride (Saline Flush) 10 ml FLUSH ASDIRECTED PRN PRN Reason: Keep Vein Open [place] (Tucks) 1 pad TOP ASDIRECTED PRN PRN Reason: Hemorrhoids Discontinued Medications Carboprost Tromethamine (Hemabate Ds) Confirm Administered Dose 250 mcg .ROUTE .STK-MED ONE Stop: 07/17/17 20:42 Last Admin: 07/18/17 07:45 Dose: Not Given Cefazolin Sodium (Ancef) Confirm Administered Dose 2 gm .ROUTE .STK-MED ONE Stop: 07/17/17 20:37 Last Admin: 07/17/17 22:41 Dose: Not Given Ephedrine Sulfate (Ephedrine Sulfate) Confirm Administered Dose 50 mg .ROUTE .STK-MED ONE Stop: 07/17/17 13:49 Last Admin: 07/17/17 16:18 Dose: Not Given Fentanyl (Sublimaze) Confirm Administered Dose 100 mcg .ROUTE .STK-MED ONE Stop: 07/17/17 15:31 Oxytocin/Sodium Chloride (Pitocin In Ns 20 Units/1,000 Ml) 20 unit in 1,000 mls @ 2,997 mls/hr IV ONETIME ONE; Protocol Stop: 07/17/17 13:50 Last Titration: 07/17/17 17:09 Dose: 6 munits/min, 18 mls/hr Ropivacaine (Naropin 0.2%) Confirm Administered Dose 200 mls @ as directed .ROUTE .STK-MED ONE Stop: 07/17/17 18:12 Sodium Chloride (Normal Saline) Confirm Administered Dose 100 mls @ as directed .ROUTE .STK-MED ONE Stop: 07/17/17 20:38 Last Admin: 07/18/17 00:15 Dose: Not Given Cefazolin Sodium/Dextrose 2 gm (/ Premix) 50 mls @ 100 mls/hr IV ONETIME ONE Stop: 07/17/17 22:59 Last Admin: 07/18/17 00:15 Dose: Not Given Cefazolin Sodium/Dextrose 2 gm (/ Premix) 50 mls @ 100 mls/hr IV ONETIME ONE Stop: 07/17/17 20:44 Last Admin: 07/17/17 20:40 Dose: 100 mls/hr Methylergonovine Maleate (Methergine) Confirm Administered Dose 0.2 mg .ROUTE .STK-MED ONE Stop: 07/17/17 20:42 Last Admin: 07/17/17 22:33 Dose: Not Given Misoprostol (Cytotec) Confirm Administered Dose 800 mcg .ROUTE .STK-MED ONE Stop: 07/17/17 20:42 Last Admin: 07/18/17 07:45 Dose: Not Given - Interaction Disposition, : [place] at Bedside Infant Interaction: Holding Feeding: Attempted ; Nursed Fair/Poor Support Person: - Recovery Exam Fundal Tone: Firms with Massage Fundal Level: 2 Fingerbreadths Below Umbilicus Fundal Placement: Midline Lochia Amount: Small, Moderate Lochia Color: [place]/Red Perineum Description: Intact, Minimal Bruising/Swelling Episiotomy/Laceration: None Bladder Status: Voiding Urinary Elimination: Voided - Exam General: Alert, Oriented HEENT: Pupils Equal Neck: Supple Lungs: Clear to Auscultation, Normal Respiratory Effort Cardiovascular: Regular Rate, Regular Rhythm GI/Abdominal Exam: Normal Bowel Sounds, Soft, Non-Tender, No Organomegaly, No Distention, No Abnormal Bruit, No Mass, Pelvis Stable Extremities: Normal Inspection, Normal Range of Motion, Non-Tender, No Pedal Edema, Normal Capillary Refill Skin: Warm, Dry, Intact Neurological: No New Focal Deficit Psy/Mental Status: Alert, Normal Affect, Normal Mood - Problem List & Annotations (1) SNOMED Code(s): 52459835 Code(s): Z34.90 - ENCNTR FOR SUPRVSN OF NORMAL , UNSP, UNSP TRIMESTER Status: Acute Current Visit: Yes Qualifiers: Weeks of gestation: 39 weeks Qualified Code(s): Z3A.39 - 39 weeks gestation of (2) Normal vaginal delivery SNOMED Code(s): 72958383 Code(s): O80 - ENCOUNTER FOR FULL-TERM UNCOMPLICATED DELIVERY Status: Acute Current Visit: Yes (3) Retained placenta or membranes SNOMED Code(s): 394337907 Code(s): O73.1 - RETAINED PORTIONS OF PLACENTA AND MEMBRANES, W/O HEMORRHAGE Status: Acute Priority: High Current Visit: Yes - Problem List Review Problem List Initiated/Reviewed/Updated: Yes - My Orders Last 24 Hours: My Active Orders 07/17/17 11:53 UA W/MICROSCOPIC [URIN] Routine 07/17/17 12:58 DRUG SCREEN, URINE [URCHEM] Routine 07/17/17 13:22 Patient Status [ADT] Routine Ambulate [RC] PER UNIT ROUTINE May Shower [RC] ASDIRECTED Notify Provider Vital Signs [RC] PRN Notify Provider [RC] PRN Up ad Crystal [RC] ASDIRECTED Vital Signs [RC] PER UNIT ROUTINE Acetaminophen [Tylenol] 650 mg PO Q4H PRN Sodium Chloride 0.9% [Saline Flush] 10 ml FLUSH ASDIRECTED PRN fentaNYL [Sublimaze] 100 mcg IVPUSH Q1H PRN DVT/VTE Prophylaxis Reflex [OM.PC] Routine Saline Lock Insert [OM.PC] Routine Resuscitation Status Routine 07/17/17 13:24 VTE/DVT Education [RC] Click to Edit 07/17/17 13:28 Epidural Catheter Management [OM.PC] Routine 07/17/17 13:30 Lactated Ringers [Ringers, Lactated] 1,000 ml IV ASDIRECTED 07/17/17 16:00 Oxytocin/Normal Saline [Pitocin in NS 20 Units/1,000 ML] 20 unit in 1,000 ml IV TITRATE 07/17/17 21:05 Acetaminophen/HYDROcodone [[place] 325-5 MG] 1 tab PO Q4H PRN Docusate Sodium [Colace] 100 mg PO BID PRN Ibuprofen [Motrin] 600 mg PO Q6H PRN Lanolin [Lansinoh HPA] 1 gm TOP ASDIRECTED PRN Witch [place] [Tucks] 1 pad TOP ASDIRECTED PRN Assess Lochia [WOMSER] Per Unit Routine Assess Uterine Involution [WOMSER] Per Unit Routine 07/17/17 21:06 Patient Status [ADT] Routine 07/17/17 21:11 Acetaminophen [Tylenol Bulk Bottle] 325 mg PO Q4H PRN Ibuprofen [Motrin Bulk Bottle] 600 mg PO Q6H PRN - Assessment Assessment:: 07/18/2017 Day One-Normal Vaginal Delivery Fundus firm and bleeding decreased Hgb-11.9 today WBC-18.1 History of retained placenta with delivery Perineum intact Pain well controlled with oral pain medication - Plan Plan:: 07/17/2017 27 yo here at 39 1/7 weeks gestation believed she had SROM at home SVE-5/80/0 Bishops score-11 Decision to augment labor due to dilation and previous history of problems with epidural placement Plan- Monitor for active labor Place epidural for pain management then will AROM for augmentation Plan for vaginal delivery 07/18/2017 Routine Cares Support and encourage Maintain one IV site CBC in am Plan discharge home in 24-48 hours
[2017-07-19 07:34] VITALS: BP 109/66
--- NOTE | 2017-07-19 08:16 | PCM.PNPP ---
- General Info Date of Service: 07/19/17 Functional Status: Reports: Pain Controlled - Review of Systems General: Reports: No Symptoms HEENT: Reports: No Symptoms Pulmonary: Reports: No Symptoms Cardiovascular: Reports: No Symptoms Gastrointestinal: Reports: No Symptoms Genitourinary: Reports: No Symptoms Musculoskeletal: Reports: No Symptoms Skin: Reports: No Symptoms Neurological: Reports: No Symptoms Psychiatric: Reports: No Symptoms - General Info Date of Service: 07/19/17 - Patient Data Vital Signs - Most Recent: Last Vital Signs Temp 36.2 C 07/19/17 07:31 Pulse 73 07/19/17 07:31 Resp 16 07/19/17 07:31 BP 109/66 07/19/17 07:31 Pulse Ox 99 07/19/17 07:31 Weight - Most Recent: 82.554 kg I&O - Last 24 Hours: Intake & Output 07/18/17 07/19/17 07/19/17 22:59 06:59 14:59 Intake Total 1000 Balance 1000 Lab Results - Last 24 Hours: Laboratory Results - last 24 hr 07/19/17 Range/Units 04:30 WBC 11.0 (4.5-11.0) K/uL RBC 3.79 (3.30-5.50) M/uL Hgb 11.6 L (12.0-15.0) g/dL Hct 35.8 L (36.0-48.0) % MCV 95 (80-98) fL MCH 31 (27-31) pg MCHC 32 (32-36) % Plt Count 197 (150-400) K/uL Neut % (Auto) 61 (36-66) % Lymph % (Auto) 31 (24-44) % [place] % (Auto) 6 (2-6) % Eos % (Auto) 2 (2-4) % Baso % (Auto) 0 (0-1) % Med Orders - Current: Current Medications Acetaminophen (Tylenol) 650 mg PO Q4H PRN PRN Reason: Pain (Mild 1-3) and fever Acetaminophen (Tylenol Bulk Bottle) 325 mg PO Q4H PRN PRN Reason: Pain Last Admin: 07/17/17 22:38 Dose: 1 bottle Hydrocodone Bitart/Acetaminophen (Purcell 325-5 Mg) 1 tab PO Q4H PRN PRN Reason: Pain (moderate 4-6) Last Admin: 07/18/17 12:36 Dose: 1 tab Docusate Sodium (Colace) 100 mg PO BID PRN PRN Reason: Constipation Last Admin: 07/18/17 21:04 Dose: 100 mg Emollient Ointment (Lansinoh Hpa) 1 gm TOP ASDIRECTED PRN PRN Reason: Sore Nipples Fentanyl (Sublimaze) 100 mcg IVPUSH Q1H PRN PRN Reason: Pain (moderate 4-6) Lactated Ringer's (Ringers, Lactated) 1,000 mls @ 125 mls/hr IV ASDIRECTED VLADIMIR Last Admin: 07/17/17 19:41 Dose: 125 mls/hr Ibuprofen (Motrin) 600 mg PO Q6H PRN PRN Reason: mild pain or fever Ibuprofen (Motrin Bulk Bottle) 600 mg PO Q6H PRN PRN Reason: Pain Last Admin: 07/17/17 22:38 Dose: 1 bottle Naloxone HCl (Narcan) 0.1 mg IVPUSH Q5M PRN PRN Reason: IF RESP RATE LESS THAN 6 Sodium Chloride (Saline Flush) 10 ml FLUSH ASDIRECTED PRN PRN Reason: Keep Vein Open Witch Damaris (Tucks) 1 pad TOP ASDIRECTED PRN PRN Reason: Hemorrhoids Discontinued Medications Carboprost Tromethamine (Hemabate Ds) Confirm Administered Dose 250 mcg .ROUTE .STK-MED ONE Stop: 07/17/17 20:42 Last Admin: 07/18/17 07:45 Dose: Not Given Cefazolin Sodium (Ancef) Confirm Administered Dose 2 gm .ROUTE .STK-MED ONE Stop: 07/17/17 20:37 Last Admin: 07/17/17 22:41 Dose: Not Given Ephedrine Sulfate (Ephedrine Sulfate) Confirm Administered Dose 50 mg .ROUTE .STK-MED ONE Stop: 07/17/17 13:49 Last Admin: 07/17/17 16:18 Dose: Not Given Ephedrine Sulfate (Ephedrine Sulfate) 5 - 10 mg IV ASDIRECTED PRN PRN Reason: Systolic BP less than 100 Fentanyl (Sublimaze) Confirm Administered Dose 100 mcg .ROUTE .STK-MED ONE Stop: 07/17/17 15:31 Oxytocin/Sodium Chloride (Pitocin In Ns 20 Units/1,000 Ml) 20 unit in 1,000 mls @ 2,997 mls/hr IV ONETIME ONE; Protocol Stop: 07/17/17 13:50 Last Titration: 07/17/17 17:09 Dose: 6 munits/min, 18 mls/hr Ropivacaine (Naropin 0.2%) 100 mls @ 0 mls/hr EPIDUR ASDIRECTED VLADIMIR; Protocol Oxytocin/Sodium Chloride (Pitocin In Ns 20 Units/1,000 Ml) 20 unit in 1,000 mls @ 6 mls/hr IV TITRATE VLADIMIR; Protocol Ropivacaine (Naropin 0.2%) Confirm Administered Dose 200 mls @ as directed .ROUTE .STK-MED ONE Stop: 07/17/17 18:12 Sodium Chloride (Normal Saline) Confirm Administered Dose 100 mls @ as directed .ROUTE .STK-MED ONE Stop: 07/17/17 20:38 Last Admin: 07/18/17 00:15 Dose: Not Given Cefazolin Sodium/Dextrose 2 gm (/ Premix) 50 mls @ 100 mls/hr IV ONETIME ONE Stop: 07/17/17 22:59 Last Admin: 07/18/17 00:15 Dose: Not Given Cefazolin Sodium/Dextrose 2 gm (/ Premix) 50 mls @ 100 mls/hr IV ONETIME ONE Stop: 07/17/17 20:44 Last Admin: 07/17/17 20:40 Dose: 100 mls/hr Methylergonovine Maleate (Methergine) Confirm Administered Dose 0.2 mg .ROUTE .STK-MED ONE Stop: 07/17/17 20:42 Last Admin: 07/17/17 22:33 Dose: Not Given Misoprostol (Cytotec) Confirm Administered Dose 800 mcg .ROUTE .STK-MED ONE Stop: 07/17/17 20:42 Last Admin: 07/18/17 07:45 Dose: Not Given - Infant Interaction Disposition, : [place]appen at Bedside Infant Interaction: Holding Infant Infant Feeding: Attempted ; Nursed Fair/Poor Support Person: - Recovery Exam Fundal Tone: Firm Fundal Level: 2 Fingerbreadths Below Umbilicus Fundal Placement: Midline Lochia Amount: Small Lochia Color: [place] Perineum Description: Intact, Minimal Bruising/Swelling Episiotomy/Laceration: None Bladder Status: Voiding Urinary Elimination: Voided - Exam General: Alert, Oriented HEENT: Pupils Equal Neck: Supple Lungs: Clear to Auscultation, Normal Respiratory Effort Cardiovascular: Regular Rate, Regular Rhythm GI/Abdominal Exam: Normal Bowel Sounds, Soft, Non-Tender, No Organomegaly, No Distention, No Abnormal Bruit, No Mass, Pelvis Stable Extremities: Normal Inspection, Normal Range of Motion, Non-Tender, No Pedal Edema, Normal Capillary Refill Skin: Warm, Dry, Intact Neurological: No New Focal Deficit Psy/Mental Status: Alert, Normal Affect, Normal Mood - Problem List & Annotations (1) SNOMED Code(s): 50251713 Code(s): Z34.90 - ENCNTR FOR SUPRVSN OF NORMAL , UNSP, UNSP TRIMESTER Status: Acute Current Visit: Yes Qualifiers: Weeks of gestation: 39 weeks Qualified Code(s): Z3A.39 - 39 weeks gestation of (2) Normal vaginal delivery SNOMED Code(s): 94669152 Code(s): O80 - ENCOUNTER FOR FULL-TERM UNCOMPLICATED DELIVERY Status: Acute Current Visit: Yes (3) Retained placenta or membranes SNOMED Code(s): 628228131 Code(s): O73.1 - RETAINED PORTIONS OF PLACENTA AND MEMBRANES, W/O HEMORRHAGE Status: Acute Priority: High Current Visit: Yes - Problem List Review Problem List Initiated/Reviewed/Updated: Yes - Assessment Assessment:: 07/18/2017 Day One-Normal Vaginal Delivery Fundus firm and bleeding decreased Hgb-11.9 today WBC-18.1 History of retained placenta with delivery Perineum intact Pain well controlled with oral pain medication 07/19/2017 day two- Now bottlefeeding Fundus firm and bleeding decreased Hgb-11.6 today WBC-11.0 Pain well controlled with oral medication To go home today - Plan Plan:: 07/17/2017 27 yo here at 39 1/7 weeks gestation believed she had SROM at home SVE-5/80/0 Bishops score-11 Decision to augment labor due to dilation and previous history of problems with epidural placement Plan- Monitor for active labor Place epidural for pain management then will AROM for augmentation Plan for vaginal delivery 07/18/2017 Routine Cares Support and encourage Maintain one IV site CBC in am Plan discharge home in 24-48 hours 07/19/2017 Continue routine cares Support bottlefeeding Can d/c IV Discharge home today to [facility] in 6 weeks
--- NOTE | 2017-07-19 09:06 | ANES ---
DATE OF SERVICE: 07/17/2017 INDICATION: Lolis is a 27-year-old female patient of Elsa Pleitez CNM. It was requested to assess this patient for epidural placement. I have recently seen this patient approximately an hour go where I bolused with 10 mL of 0.2% ropivacaine with 100 mcg of fentanyl. After she had no relief in initial placement, she had minimal relief I guess after that. I was requested again to come and assess the patient. On discussion with her, I recommended that we remove all epidural components and redo with whole new set. She was agreeable to that. DESCRIPTION OF PROCEDURE: The catheter was removed and intact. I washed her back x3 with the Betadine prep. I after had her in a seated position. 1% lidocaine at the skin wheal as well as deep at the L2-L3 position, sterile drape was placed. A 17-gauge Tuohy was placed to loss of resistance at approximately 6 cm as before. Negative CSF, negative heme, negative paresthesia. I placed the catheter to 13 cm. I removed the needle. A test dose of 3 mL of 1.5% lidocaine with 1:200,000 epinephrine with negative sequelae. I secured the catheter, placed the patient in supine position. I injected 12 mL of 0.2% ropivacaine and began infusion of that same 12 mL of ropivacaine. She tolerated the procedure quite well, stated that she was starting to have some numbness that she was feeling immediately after injection. I will assess her again after dictation. Again, she tolerated the procedure quite well. Vitals remained within the normal limits, and we did repeat a saline bolus, I reported to the RN. Rocael Liang CRNA /[id number]
== END 2017-07-19 12:00 | disposition home or self-care (01) | DRG 541 ==
LOC: JP.OBCHECK 11:37 → JP.OB 13:10 → OBSVTOIN 20:12 → JP.OB 20:12 → JP.MS 21:00
PROVIDERS: ADMIT Advanced Practice Midwife; ATTEND Advanced Practice Midwife
PROC: 10E0XZZ Delivery of Products of Conception, External Approach (ICD-10-PCS; principal; 2017-07-17)
PROC: 10D17Z9 Manual Extraction of Products of Conception, Retained, Via Natural or Artificial Opening (ICD-10-PCS; 2017-07-17)
DX: O42.02 Full-term premature rupture of membranes, onset of labor within 24 hours of rupture (principal); O73.0 Retained placenta without hemorrhage; Z3A.39 39 weeks gestation of pregnancy; Z37.0 Single live birth
CPT/HCPCS: 36415; 51702; 59409; 80305; 81001; 84112; 85025; 99211; A9270-GY; J0690; J2590; J2795; J3010; J7120